=== PATIENT | male | born 1995 | race Hispanic/Latino ===

== ENCOUNTER 2018-06-04 01:54 | Emergency (ER) | payer SELFPAY ==
--- NOTE | 2018-06-04 02:16 | ER ---
Nurse's Notes [facility] Name: Gerardo Carlin Age: 23 yrs Sex: Male : 1995 Arrival Date: 06/04/2018 Time: 02:00 Bed 19 Private MD: Diagnosis: Dyspnea Presentation: 06/04 02:00 Presenting complaint: Patient states: that for the past 4-5 months he has been having fc difficulty breathing that is worse sometimes with activity. Hx of anxiety that he does not take his medication for. Transition of care: patient was not received from another setting of care. Onset of symptoms was January 2018. Risk Assessment: Do you want to hurt yourself or someone else? Patient reports no desire to harm self or others. Initial Sepsis Screen: Does the patient meet any 2 criteria? No. Patient's initial sepsis screen is negative. Does the patient have a suspected source of infection? No. Patient's initial sepsis screen is negative. Care prior to arrival: None. 02:00 Method Of Arrival: Ambulatory fc 02:00 Acuity: LUCILA 5 fc Historical: - Allergies: 02:13 No Known Allergies; fc - Home Meds: 02:13 None [Active]; fc - PMHx: 02:13 Anxiety; fc - PSHx: 02:13 None; fc - Immunization history:: Last tetanus immunization: up to date Flu vaccine is not up to date. - Social history:: Smoking status: Patient/guardian denies using tobacco, the patient reports quitting approximately .4 years ago, Patient/guardian denies using alcohol, street drugs. - Ebola Screening: : Patient negative for fever greater than or equal to 101.5 degrees Fahrenheit, and additional compatible Ebola Virus Disease symptoms Patient denies exposure to infectious person Patient denies travel to an Ebola-affected area in the 21 days before illness onset. Screenin:15 Abuse screen: Denies threats or abuse. Nutritional screening: No deficits noted. fc Tuberculosis screening: No symptoms or risk factors identified. Fall Risk None identified. Assessment: 02:20 General: Appears in no apparent distress. Behavior is calm, cooperative. Pain: Denies ed1 pain. Neuro: Level of Consciousness is awake, alert, obeys commands, Oriented to person, place, time, situation. Cardiovascular: Reports shortness of breath, Denies chest pain, Heart tones S1 S2 present Rhythm is regular. Respiratory: Reports shortness of breath at rest off and on Airway is patent Respiratory effort is even, unlabored, Respiratory pattern is regular, symmetrical, Breath sounds are clear bilaterally. GI: No signs and/or symptoms were reported involving the gastrointestinal system. : No signs and/or symptoms were reported regarding the genitourinary system. EENT: No signs and/or symptoms were reported regarding the EENT system. Derm: Skin is intact, is healthy with good turgor, Skin is dry, Skin is normal, Skin temperature is warm. Musculoskeletal: Circulation, motion, and sensation intact. Vital Signs: 02:13 BP 142 / 97; Pulse 81; Resp 18; Temp 98.7(O); Pulse Ox 100% on R/A; Weight 136.08 kg (R); Height 5 ft. 7 in. (170.18 cm) (R); Pain 0/10; 02:13 Body Mass Index 46.99 (136.08 kg, 170.18 cm) ED Course: 02:00 Patient arrived in ED. es 02:10 Lucina Vargas, SIOBHAN is Primary Nurse. ed1 02:11 Teena [facility]C [facility]. kb 02:11 Sanju Piedra MD is Attending Physician. kb 02:12 Triage completed. fc 02:13 Arm band placed on Patient placed in an exam room, on a stretcher. fc 02:15 Patient has correct armband on for positive identification. Bed in low position. Call light in reach. 02:20 No provider procedures requiring assistance completed. Patient did not have IV access ed1 during this emergency room visit. Administered Medications: 02:20 Not Given (Patient Refused): hydrOXYzine 25 mg PO once ed1 Outcome: 02:16 Discharge ordered by . kb 02:20 Discharged to home ambulatory. ed1 02:20 Condition: good 02:20 Discharge instructions given to patient, Instructed on discharge instructions, follow up and referral plans. medication usage, Demonstrated understanding of instructions, follow-up care, medications, Prescriptions given X 1. 02:22 Patient left the ED. ed1 Signatures: Teena López FNP-C FNP-Ckb Salyer, Edna es Chretien, Felicia, RN RN Lucina Vargas RN RN ed1
--- NOTE | 2018-06-04 02:16 | EDPHYS ---
Physician Documentation [facility] Name: Gerardo Carlin Age: 23 yrs Sex: Male : 1995 Arrival Date: 06/04/2018 Time: 02:00 Bed 19 Private MD: ED Physician Sanju Piedra HPI: 06/04 02:13 This 23 yrs old Male presents to ER via Ambulatory with complaints of kb Breathing Difficulty. 02:13 The patient has shortness of breath and the patient has a history of anxiety. Onset: kb The symptoms/episode began/occurred 5 month(s) ago. Duration: The symptoms are intermittent, with no pattern. The patient's shortness of breath has no apparent modifying factors. Associated signs and symptoms: The patient has no apparent associated signs or symptoms. Severity of symptoms: At their worst the symptoms were mild moderate in the emergency department the symptoms have resolved. The patient has experienced a previous episode, and the symptoms today are exactly the same, diagnosed with anxiety. The patient has not recently seen a physician. Pt reports he has had intermittent shortness of breath for the past 4-5 months. Denies any symptoms at this time. Has been diagnosed with anxiety in the past and thinks that could be it, but didn't want to take the medication they gave him because of the side effects. . Historical: - Allergies: 02:13 No Known Allergies; fc - Home Meds: 02:13 None [Active]; fc - PMHx: 02:13 Anxiety; fc - PSHx: 02:13 None; fc - Immunization history:: Last tetanus immunization: up to date Flu vaccine is not up to date. - Social history:: Smoking status: Patient/guardian denies using tobacco, the patient reports quitting approximately .4 years ago, Patient/guardian denies using alcohol, street drugs. - Ebola Screening: : Patient negative for fever greater than or equal to 101.5 degrees Fahrenheit, and additional compatible Ebola Virus Disease symptoms Patient denies exposure to infectious person Patient denies travel to an Ebola-affected area in the 21 days before illness onset. ROS: 02:13 Constitutional: Negative for fever, chills, and weight loss, ENT: Negative for injury, kb pain, and discharge, Neck: Negative for injury, pain, and swelling, Cardiovascular: Negative for chest pain, palpitations, and edema, Respiratory: Negative for shortness of breath, cough, wheezing, and pleuritic chest pain, Abdomen/GI: Negative for abdominal pain, nausea, vomiting, diarrhea, and constipation, Back: Negative for injury and pain, : Negative for injury, bleeding, discharge, and swelling, MS/Extremity: Negative for injury and deformity, Skin: Negative for injury, rash, and discoloration, Neuro: Negative for headache, weakness, numbness, tingling, and seizure. Exam: 02:13 Constitutional: This is a well developed, well nourished patient who is awake, alert, kb and in no acute distress. Head/Face: Normocephalic, atraumatic. ENT: Nares patent. No nasal discharge, no septal abnormalities noted. Tympanic membranes are normal and external auditory canals are clear. Oropharynx with no redness, swelling, or masses, exudates, or evidence of obstruction, uvula midline. Mucous membranes moist. Neck: Trachea midline, no thyromegaly or masses palpated, and no cervical lymphadenopathy. Supple, full range of motion without nuchal rigidity, or vertebral point tenderness. No Meningismus. Chest/axilla: Normal chest wall appearance and motion. Nontender with no deformity. No lesions are appreciated. Cardiovascular: Regular rate and rhythm with a normal S1 and S2. No gallops, murmurs, or rubs. Normal PMI, no JVD. No pulse deficits. Respiratory: Lungs have equal breath sounds bilaterally, clear to auscultation and percussion. No rales, rhonchi or wheezes noted. No increased work of breathing, no retractions or nasal flaring. Abdomen/GI: Soft, non-tender, with normal bowel sounds. No distension or tympany. No guarding or rebound. No evidence of tenderness throughout. Skin: Warm, dry with normal turgor. Normal color with no rashes, no lesions, and no evidence of cellulitis. MS/ Extremity: Pulses equal, no cyanosis. Neurovascular intact. Full, normal range of motion. Neuro: Awake and alert, GCS 15, oriented to person, place, time, and situation. Cranial nerves II-XII grossly intact. Motor strength 5/5 in all extremities. Sensory grossly intact. Cerebellar exam normal. Normal gait. 02:13 Constitutional: The patient appears anxious. Vital Signs: 02:13 BP 142 / 97; Pulse 81; Resp 18; Temp 98.7(O); Pulse Ox 100% on R/A; Weight 136.08 kg fc (R); Height 5 ft. 7 in. (170.18 cm) (R); Pain 0/10; 02:13 Body Mass Index 46.99 (136.08 kg, 170.18 cm) MDM: 02:11 Patient medically screened. kb 02:12 Data reviewed: vital signs, nurses notes. Data interpreted: Pulse oximetry: on room air kb is 100 %. Interpretation: normal. Counseling: I had a detailed discussion with the patient and/or guardian regarding: the historical points, exam findings, and any diagnostic results supporting the discharge/admit diagnosis, the need for outpatient follow up, a family practitioner, to return to the emergency department if symptoms worsen or persist or if there are any questions or concerns that arise at home. Administered Medications: 02:20 Not Given (Patient Refused): hydrOXYzine 25 mg PO once ed1 Disposition: 06/04/18 02:16 Discharged to Home. Impression: Dyspnea. - Condition is Stable. - Discharge Instructions: Shortness of Breath, [id number], Panic Attacks, Ojzr-hr-[id number]. - Prescriptions for Hydroxyzine HCl 25 mg Oral Tablet - take 1 tablet by ORAL route At bedtime As needed; 12 tablet. - Medication Reconciliation Form, Thank You Letter, Antibiotic Education, Prescription Opioid Use form. - Follow up: Emergency Department; When: As needed; Reason: Worsening of condition. Follow up: Private Physician; When: 2 - 3 days; Reason: Recheck today's complaints, Continuance of care, Re-evaluation by your physician. Addendum: 06/07/2018 19:28 Co-signature as Attending Physician, Sanju Piedra MD. g s Signatures: Teena López, JOSSELINE PARIKH-Airam Matta RN RN Lucina Vargas RN RN ed1 Sanju Piedra MD MD Corrections: (The following items were deleted from the chart) 06/04 02:22 02:16 06/04/2018 02:16 Discharged to Home. Impression: Dyspnea. Condition is Stable. ed1 Forms are Medication Reconciliation Form, Thank You Letter, Antibiotic Education, Prescription Opioid Use. Follow up: Emergency Department; When: As needed; Reason: Worsening of condition. Follow up: Private Physician; When: 2 - 3 days; Reason: Recheck today's complaints, Continuance of care, Re-evaluation by your physician. kb
[2018-06-04] MEDS ORDERED: hydrOXYzine HCl 25 MG TAB ONE (02:27)
== END 2018-06-04 02:22 | disposition home or self-care (01) ==
LOC: ER 01:54
DX: R06.00 Dyspnea, unspecified (principal); F41.9 Anxiety disorder, unspecified
CPT/HCPCS: 99282

== ENCOUNTER 2019-10-09 14:19 | Emergency (ER) | payer SELFPAY ==
[2019-10-09] MEDS ORDERED: VALACYCLOVIR 500 MG TAB ONE (15:51)
--- NOTE | 2019-10-09 16:21 | EDPHYS ---
Physician Documentation [facility] Name: Gerardo Carlin Age: 24 yrs Sex: Male : 1995 Arrival Date: 10/09/2019 Time: 14:23 Bed 11 Private MD: ED Physician Fletcher Hernandez HPI: 10/08 16:15 This 24 yrs old Male presents to ER via Ambulatory with complaints of STD kb Exposure. 16:19 The patient presents with symptoms include vesicular rash of the shaft of penis. Onset: kb The symptoms/episode began/occurred 1 week(s) ago. Modifying factors: The symptoms are alleviated by nothing, the symptoms are aggravated by nothing. Associated signs and symptoms: The patient has no apparent associated signs or symptoms. Severity of symptoms: At their worst the symptoms were moderate, in the emergency department the symptoms are unchanged. The patient has not experienced similar symptoms in the past. The patient has not recently seen a physician. Historical: - Allergies: 14:41 No Known Allergies; sv - PMHx: 14:41 Anxiety; sv - PSHx: 14:41 None; sv - Immunization history:: Adult Immunizations. - Social history:: Smoking status: . ROS: 16:09 Constitutional: Negative for fever, chills, and weight loss, Cardiovascular: Negative kb for chest pain, palpitations, and edema, Respiratory: Negative for shortness of breath, cough, wheezing, and pleuritic chest pain, Abdomen/GI: Negative for abdominal pain, nausea, vomiting, diarrhea, and constipation, Back: Negative for injury and pain, MS/Extremity: Negative for injury and deformity, Neuro: Negative for headache, weakness, numbness, tingling, and seizure. 16:09 Skin: Positive for rash, of the shaft of penis. Exam: 16:10 Constitutional: This is a well developed, well nourished patient who is awake, alert, kb and in no acute distress. Head/Face: Normocephalic, atraumatic. Chest/axilla: Normal chest wall appearance and motion. Nontender with no deformity. No lesions are appreciated. Cardiovascular: Regular rate and rhythm with a normal S1 and S2. No gallops, murmurs, or rubs. Normal PMI, no JVD. No pulse deficits. Respiratory: Lungs have equal breath sounds bilaterally, clear to auscultation and percussion. No rales, rhonchi or wheezes noted. No increased work of breathing, no retractions or nasal flaring. Abdomen/GI: Soft, non-tender, with normal bowel sounds. No distension or tympany. No guarding or rebound. No evidence of tenderness throughout. MS/ Extremity: Pulses equal, no cyanosis. Neurovascular intact. Full, normal range of motion. Neuro: Awake and alert, GCS 15, oriented to person, place, time, and situation. Cranial nerves II-XII grossly intact. Motor strength 5/5 in all extremities. Sensory grossly intact. Cerebellar exam normal. Normal gait. 16:10 Skin: rash a moderate rash is noted, rash can be described as vesicular, on the shaft of penis. Vital Signs: 14:41 BP 128 / 77; Pulse 100; Resp 16; Temp 99.6; Pulse Ox 100% ; Height 5 ft. 9 in. (175.26 sv cm); MDM: 15:17 Patient medically screened. kb 16:08 Data reviewed: vital signs, nurses notes. Data interpreted: Pulse oximetry: on room air kb is 100 %. Interpretation: normal. Counseling: I had a detailed discussion with the patient and/or guardian regarding: the historical points, exam findings, and any diagnostic results supporting the discharge/admit diagnosis, the need for outpatient follow up, a family practitioner, to return to the emergency department if symptoms worsen or persist or if there are any questions or concerns that arise at home. 10/08 15:47 Order name: HSV CULTURE W/REFLEX TYPING EDMS Administered Medications: 16:17 Drug: Valtrex 1000 mg Route: PO; ss 16:17 Follow up: Response: No adverse reaction sv Disposition: 10/09 10:28 Co-signature as Attending Physician, Fletcher Hernandez MD I agree with the assessment and kelton plan of care. Disposition: 10/09/19 16:21 Discharged to Home. Impression: Rash and other nonspecific skin eruption - vesicular rash to penis. - Condition is Stable. - Discharge Instructions: Genital Herpes. - Prescriptions for Valtrex 1 g Oral Tablet - take 1 tablet by ORAL route every 12 hours for 10 days; 20 tablet. - Medication Reconciliation Form, Thank You Letter, Antibiotic Education, Prescription Opioid Use form. - Follow up: Emergency Department; When: As needed; Reason: Worsening of condition. Follow up: Private Physician; When: 2 - 3 days; Reason: Recheck today's complaints, Continuance of care, Re-evaluation by your physician. Signatures: Dispatcher [employer] Teena Mcarthur FNP-C FNP-Gay Juan, RN RN Fletcher Dominguez MD MD cha Smirch, Shelby, RN RN ss Corrections: (The following items were deleted from the chart) 10/08 16:41 16:21 10/09/2019 16:21 Discharged to Home. Impression: Rash and other nonspecific skin ss eruption - vesicular rash to penis. Condition is Stable. Forms are Medication Reconciliation Form, Thank You Letter, Antibiotic Education, Prescription Opioid Use. Follow up: Emergency Department; When: As needed; Reason: Worsening of condition. Follow up: Private Physician; When: 2 - 3 days; Reason: Recheck today's complaints, Continuance of care, Re-evaluation by your physician. kb
--- NOTE | 2019-10-09 16:21 | ER ---
Nurse's Notes [facility] Name: Gerardo Carlin Age: 24 yrs Sex: Male : 1995 Arrival Date: 10/09/2019 Time: 14:23 Bed 11 Private MD: Diagnosis: Rash and other nonspecific skin eruption-vesicular rash to penis Presentation: 10/08 14:40 Chief complaint: Patient states: "I want to get checked for an STD." Denies symptoms. sv Coronavirus screen: Patient denies a cough. Patient denies shortness of breath or difficulty breathing. Patient denies measured and/or subjective temperature greater than 100.4F prior to today's visit. Patient denies travel on a cruise ship or to a country the [facility] currently lists as an affected area. Patient denies contact with known and/or suspected case of COVID-19. Proceed with normal triage. Ebola Screen: No symptoms or risks identified at this time. Risk Assessment: Do you want to hurt yourself or someone else? Patient reports no desire to harm self or others. Onset of symptoms was October 09, 2019. 14:40 Method Of Arrival: Ambulatory sv 14:40 Acuity: LUCILA 5 sv 14:41 Initial Sepsis Screen: Does the patient meet any 2 criteria? HR > 90 bpm. No. Patient's sv initial sepsis screen is negative. Does the patient have a suspected source of infection? No. Patient's initial sepsis screen is negative. Triage Assessment: 14:43 General: Appears in no apparent distress. comfortable, Behavior is calm, cooperative, sv appropriate for age. Pain: Denies pain. Neuro: Level of Consciousness is awake, alert, obeys commands, Oriented to person, place, time, situation, Gait is steady. Respiratory: Respiratory effort is even, unlabored, Respiratory pattern is regular, symmetrical. Historical: - Allergies: 14:41 No Known Allergies; sv - PMHx: 14:41 Anxiety; sv - PSHx: 14:41 None; sv - Immunization history:: Adult Immunizations. - Social history:: Smoking status: . Screenin:44 Abuse screen: Denies threats or abuse. Denies injuries from another. Nutritional ss screening: No deficits noted. Tuberculosis screening: Never had TB. Fall Risk None identified. Assessment: 15:44 General: Appears in no apparent distress. comfortable, Behavior is cooperative, quiet. ss Pain: Complains of pain in shaft of penis Quality of pain is described as tender. Neuro: Level of Consciousness is awake, alert, obeys commands, Oriented to person, place, time, situation. Respiratory: Airway is patent Respiratory effort is even, unlabored, Respiratory pattern is regular, symmetrical. Derm: Skin is intact, is healthy with good turgor, Skin is dry. Musculoskeletal: Circulation, motion, and sensation intact. Range of motion: intact in all extremities, Swelling absent. Vital Signs: 14:41 BP 128 / 77; Pulse 100; Resp 16; Temp 99.6; Pulse Ox 100% ; Height 5 ft. 9 in. (175.26 sv cm); ED Course: 14:23 Patient arrived in ED. fj1 14:35 Teena L[facility]pez [facility]-C [facility]. kb 14:35 Fletcher Hernandez MD is Attending Physician. kb 14:40 Arm band placed on. sv 14:41 Triage completed. sv 15:44 Mariela Dickinson, RN is Primary Nurse. ss 15:44 Patient has correct armband on for positive identification. Bed in low position. Call ss light in reach. 16:40 No provider procedures requiring assistance completed. Patient did not have IV access ss during this emergency room visit. Administered Medications: 16:17 Drug: Valtrex 1000 mg Route: PO; ss 16:17 Follow up: Response: No adverse reaction sv Outcome: 16:21 Discharge ordered by MD. kb 16:40 Discharged to home ambulatory. ss 16:40 Condition: good 16:40 Discharge instructions given to patient, Instructed on discharge instructions, follow up and referral plans. medication usage, Demonstrated understanding of instructions, follow-up care, medications, wound care, Prescriptions given X 1. 16:41 Patient left the ED. ss Signatures: Teena López FNP-C FNP-Ckb Verde, Stephanie, RN RN Mariela Dickinson RN RN Chris Carrasquillo fj1 Corrections: (The following items were deleted from the chart) 14:43 14:41 Pulse 100bpm; Resp 16bpm; Pulse Ox 100%; Temp 99.6F; Height 5 ft. 9 in.; sv sv
[2019-10-09 17:16] VITALS: BP 128/77; TEMP 99.6; O2SAT 100
== END 2019-10-09 16:41 | disposition home or self-care (01) ==
LOC: ER 14:19
DX: R21 Rash and other nonspecific skin eruption (principal); Z20.2 Contact with and (suspected) exposure to infections with a predominantly sexual mode of transmission
CPT/HCPCS: 87252; 99283